=== PATIENT | male | born 2000 | race Caucasian/White ===

== ENCOUNTER 2018-01-14 16:19 | Emergency (ER) | payer OTHER ==
--- NOTE | 2018-01-14 16:54 | PDOC ---
Rapid Medical Evaluation Time Seen by Provider: 01/14/18 16:52 Medical Evaluation: I have performed a brief in-person evaluation of this patient. The patient presents with a chief complaint of: need a detox evaluation for probation. Patient smokes weed and takes xanax Pertinent physical exam findings: none I have ordered the following: urine tox The patient will proceed to the ED for further evaluation. Discharge Disposition - Diagnosis Desire for detoxification - Referrals - Patient Instructions - Post Discharge Activity
[2018-01-14 16:58] VITALS: BP 140/83; PULSE 82; TEMP 98.2; BMI 29.5
[2018-01-14 17:58] LABS: COCAINE, UR NEGATIVE ng/ml (CUTOFF=300); METHADONE, UR NEGATIVE ng/ml (CUTOFF=300); OPIATES, URI NEGATIVE ng/ml (CUTOFF=300); PHENCYCLIDINE,URINE NEGATIVE ng/ml (CUTOFF=25); URINE AMPHETAMINES NEGATIVE ng/ml (CUTOFF=500); URINE BARBITURATES NEGATIVE ng/ml (CUTOFF=200)
[2018-01-14 18:03] LABS: URINE BENZODIAZEPINES POSITIVE ng/ml (CUTOFF=200)
--- NOTE | 2018-01-14 18:24 | PDOC ---
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 Patient states he feels he does not need detox from benzodiazepines or marijuana Past History - Past Medical History Allergies/Adverse Reactions: Allergies Allergy/AdvReac Type Severity Reaction Status Date / Time No Known Allergies Allergy Verified 01/14/18 16:54 Home Medications: Ambulatory Orders NK [No Known Home Medication] 01/14/18 COPD: No - Immunization History Immunization Up to Date: Yes - Suicide/Smoking/Psychosocial Hx Smoking History: Never smoked Hx Alcohol Use: No Drug/Substance Use Hx: No Substance Use Type: Marijuana, Prescribed Review of Systems - Review of Systems Constitutional: No: Fever *Physical Exam - Vital Signs Last Vital Signs Temp Pulse Resp BP Pulse Ox 98.2 F 82 17 140/83 100 01/14/18 16:54 01/14/18 16:54 01/14/18 16:54 01/14/18 16:54 01/14/18 16:54 - Physical Exam Comments: 01/14/18 18:23 HEAD: NC/AT EYES: Conjuntiva clear Ears: Canals and TM's normal NOSE: No d/c THROAT: Moist mucous membrances, oral pharanx clear, uvula midline NECK: Supple without adenopathy CARDIAC: S1 S2 LUNGS: CTA Full and Equal breath sounds ABDOMEN: Soft NT ND MS: Full ROM in all joints without edema NEUROLOGIC: No gross sensory or motor deficits, NVID SKIN: Normal color and temperature no lesions or rashes ED Treatment Course - ADDITIONAL ORDERS Additional order review: Laboratory Results 01/14/18 17:05 Opiates Screen Negative Methadone Screen Negative Barbiturate Screen Negative Phencyclidine Screen Negative Ur Amphetamines Screen Negative MDMA (Ecstasy) Screen Negative Benzodiazepines Screen Positive A* Cocaine Screen Negative U Marijuana (THC) Screen Positive A* *DC/Admit/Observation/Transfer Diagnosis at time of Disposition: Desire for detoxification - Discharge Dispostion Disposition: HOME Condition at time of disposition: Stable Decision to Admit order: No - Referrals - Patient Instructions Printed Discharge Instructions: Toxicology Screen, Drug Abuse and Drug Addiction, DI for Drug Abuse and Drug Addiction Additional Instructions: From medical standpoint you are cleared for detox return to the emergency room should you require further treatment or services follow-up with the detox unit as scheduled - Post Discharge Activity
== END 2018-01-14 18:56 | disposition home or self-care (01) ==
LOC: JER 16:19 → JERFT 16:19
DX: F13.10 Sedative, hypnotic or anxiolytic abuse, uncomplicated (principal); F12.10 Cannabis abuse, uncomplicated; F41.9 Anxiety disorder, unspecified
CPT/HCPCS: 80307; 99281-25